=== PATIENT | female | born 1960 | race Caucasian/White ===

== ENCOUNTER 2022-03-11 12:18 | Emergency (ER) | payer OTHER, SELFPAY ==
--- NOTE | ~2022-03-11 | XR_ITS ---
EXAMINATION: XR knee RT 3V DATE: 03/11/2022 12:55 INDICATION: Right knee pain TECHNIQUE: Three views of the right knee were obtained. COMPARISON: None. FINDINGS: Alignment is normal. No fracture or osteochondral lesion. Joint spaces are normal with no e rosions. No joint effusion/synovitis. Soft tissues are unremarkable. IMPRESSION: 1. No acute osseous abnormality. Reviewed, dictated and finalized at location B. [facility]PERINTENDENT
[2022-03-11 12:26] VITALS: BP 154/56; PULSE 86; RESP 16; TEMP 37.1; O2SAT 96
[2022-03-11 12:35] VITALS: BP 154/56; PULSE 86; RESP 16; TEMP 37.1; O2SAT 96
--- NOTE | 2022-03-11 12:40 | ED.URI ---
HPI - URI/Sore Throat General Chief Complaint: Upper Respiratory Infection Stated Complaint: cough, rt knee injury Time Seen by Provider: 03/11/22 12:36 Source: patient and RN notes reviewed Mode of arrival: ambulatory Limitations: no limitations History of Present Illness HPI Narrative: 61-year-old female presents with multiple complaints. She reports a cough since last week that is worse at night causing her trouble sleeping. She denies any runny nose, stuffy nose, sore throat, aches, chills, sweats, shortness of breath. And a separate complaints she reports right knee pain. Reports she twisted her knee last Friday. She reports posterior pain that does not ease when she is resting. She reports trouble finding a comfortable position. She denies swelling, bruising, redness, warmth of the knee MD elicited complaint: cough and other (Right knee pain) Related Data Home Medications Medication Instructions Recorded Confirmed aspirin 81 mg tablet 81 mg PO DAILY 03/11/22 03/11/22 bupropion HCl 150 mg 24 hr tablet, 150 mg PO DAILY 03/11/22 03/11/22 extended release bupropion HCl 300 mg 24 hr tablet, 300 mg PO DAILY 03/11/22 03/11/22 extended release calcium carbonate 600 mg-vitamin 1 tablet PO DAILY 03/11/22 03/11/22 D3 10 mcg (400 unit) tablet citalopram 40 mg tablet 40 mg PO DAILY 03/11/22 03/11/22 esomeprazole magnesium 20 mg 20 mg PO DAILY 03/11/22 03/11/22 capsule,delayed release (Nexium) furosemide 40 mg tablet 40 mg PO DAILY 03/11/22 03/11/22 lovastatin 20 mg tablet 20 mg PO DAILY 03/11/22 03/11/22 spironolactone 25 mg tablet 25 mg PO DAILY 03/11/22 03/11/22 Allergies Allergy/AdvReac Type Severity Reaction Status Date / Time No Known Allergies Allergy Mild Verified 03/11/22 12:29 Review of Systems Review of Systems: CONSTITUTIONAL: Denies malaise, chills, sweats, or fever. EYES: Denies visual changes, redness, or discharge. ENT: Denies rhinorrhea, congestion, sinus pain, otalgia and sore throat. CARDIOVASCULAR: Denies chest pain, palpitations, or edema. RESPIRATORY: Reports cough. Denies dyspnea. GASTROINTESTINAL: Denies abdominal pain, nausea, vomiting, diarrhea SKIN: Denies rash or itching. MUSCULOSKELETAL: Denies myalgia. Reports right knee pain NEUROLOGIC: Denies headache. All systems reviewed & are unremarkable except as noted in HPI and below PMFSH Family History Family History (Updated 10/28/13 @ 07:13 by DOCTOR UNKNOWN) Father Hypertension Patient's father is Mother Patient's mother is Social History Social History Alcohol intake: never Comments At time of signature, agree with nursing past medical, surgical, social and family history. There is no relevant family history pertinent to the presenting complaint Exam Narrative: GENERAL: Well-appearing, well-nourished, and in no acute distress. HEAD: Normocephalic EYES: PERRLA, conjunctivae clear ENT: Nares clear. Mucous membranes moist. TM pearly walter with sharp light reflex bilaterally; no tragal tenderness. Oropharynx not erythematous without lesions. Tonsils not enlarged and without exudate, no drooling, no hoarseness, no trismus, uvula midline. NECK: Supple. No lymphadenopathy CHEST: Clear to auscultation, breath sounds equal. No wheezing, rhonchi, rales, or stridor. No respiratory distress, speaks in full sentences. HEART: Regular rate and rhythm. No murmur heard. SKIN: Warm, dry, no rash. MUSC: Medial right knee tenderness without bruising, swelling. Grossly normal range of motion, sensation, strength NEURO: Alert and oriented x3. PSYCH: Normal mood and affect Course Course Emergency Course: Patient is aware of diagnosis, understands and agrees to treatment plan. Anticipatory guidance given. Patient agrees to follow-up as directed and is aware of reasons to seek care at the emergency department. Portions of this record may have been created with voice recognition software
== END 2022-03-11 13:06 | disposition home or self-care (01) ==
PROVIDERS: Emergency Provider Nurse Practitioner; PCP Internal Medicine
DX: R05.9 Cough, unspecified (principal); S83.91XA Sprain of unspecified site of right knee, initial encounter; X50.9XXA Other and unspecified overexertion or strenuous movements or postures, initial encounter; Z79.82 Long term (current) use of aspirin; J44.9 Chronic obstructive pulmonary disease, unspecified; F41.9 Anxiety disorder, unspecified; F32.A Depression, unspecified
CPT/HCPCS: 73562; 99204; G0463

== ENCOUNTER 2022-11-11 09:42 | Emergency (ER) | payer OTHER, SELFPAY ==
[2022-11-11 09:57] VITALS: BP 143/86; PULSE 77; RESP 16; TEMP 36.6; O2SAT 99
--- NOTE | 2022-11-11 10:01 | ED.EAR ---
HPI - Ear Problem General Chief complaint: Ear Stated complaint: Earache Time Seen by Provider: 11/11/22 09:53 Source: patient and RN notes reviewed Mode of arrival: ambulatory Limitations: no limitations History of Present Illness HPI Narrative: Patient presents today complaining of right ear pain x2 days with muffled hearing. Pain radiates down the right side of her neck. She currently rates her pain 10/10 and has been taking ibuprofen with mild relief. Denies any additional symptoms. Related Data Home Medications Medication Instructions Recorded Confirmed aspirin 81 mg tablet 81 mg PO DAILY 03/11/22 11/11/22 bupropion HCl 150 mg 24 hr tablet, 150 mg PO DAILY 03/11/22 11/11/22 extended release bupropion HCl 300 mg 24 hr tablet, 300 mg PO DAILY 03/11/22 11/11/22 extended release calcium carbonate 600 mg-vitamin 1 tablet PO DAILY 03/11/22 11/11/22 D3 10 mcg (400 unit) tablet citalopram 40 mg tablet 40 mg PO DAILY 03/11/22 11/11/22 esomeprazole magnesium 20 mg 20 mg PO DAILY 03/11/22 11/11/22 capsule,delayed release (Nexium) furosemide 40 mg tablet 40 mg PO DAILY 03/11/22 11/11/22 lovastatin 20 mg tablet 20 mg PO DAILY 03/11/22 11/11/22 spironolactone 25 mg tablet 25 mg PO DAILY 03/11/22 11/11/22 gabapentin 100 mg capsule 100 mg PO TID 11/11/22 11/11/22 ibuprofen 600 mg tablet 600 mg PO TID 11/11/22 11/11/22 Allergies Allergy/AdvReac Type Severity Reaction Status Date / Time No Known Allergies Allergy Mild Verified 11/11/22 09:51 Review of Systems Review of Systems: CONSTITUTIONAL: Denies body aches, fever, chills, or sweats. EYES: Denies visual changes, redness, or discharge. ENT: Denies rhinorrhea, congestion, sore throat. + right ear pain CARDIOVASCULAR: Denies chest pain, palpitations, or edema. RESPIRATORY: Denies cough or dyspnea. GASTROINTESTINAL: Denies abdominal pain, nausea, vomiting, or diarrhea. GENITOURINARY: Denies dysuria or hematuria. SKIN: Denies rash, itching, or wounds. MUSCULOSKELETAL: Denies back pain, joint pain, or myalgia. NEUROLOGIC: Denies headache, numbness, tingling, or weakness. PSYCH: Denies depression or anxiety. [facility] Past Medical History Medical History (Updated 11/11/22 @ 10:11 by HEATH Rowley, ) GERD (gastroesophageal reflux disease) High cholesterol Family History Family History Father Hypertension Patient's father is Mother Patient's mother is Social History Social History Alcohol intake: never Comments At time of signature, I have reviewed and agree with nursing past medical, surgical, social and family history unless otherwise noted. Please see nursing chart for further information. There is no relevant family history pertinent to the presenting complaint Exam Narrative: GENERAL: Well-appearing, well-nourished, and in no acute distress. HEAD: Normocephalic, atraumatic. EYES: EOMI. No redness or drainage. Conjunctivae normal. ENT: Mucous membranes pink and moist. Nares clear. No rhinorrhea. Left TM normal. Right TM erythematous and bulging. NECK: Normal AROM. CHEST: No respiratory distress. EXTREMITIES: Normal range of motion. No edema. SKIN: Warm, dry, no rash. Capillary refill normal. Normal skin turgor. NEURO: No focal deficits. Alert and oriented x3. Gait steady. PSYCH: Normal affect. No signs of depression or anxiety. Course Course Level of Care: Express Care Visit Vital Signs Vital signs: Vital Signs Temperature 97.9 F 11/11/22 09:57 Pulse Rate 77 11/11/22 09:57 Respiratory Rate 16 11/11/22 09:57 Blood Pressure 143/86 H 11/11/22 09:57 Pulse Oximetry 99 11/11/22 09:57 Oxygen Delivery Room Air 11/11/22 09:57 Temperature 97.9 F 11/11/22 09:57 Pulse Rate 77 11/11/22 09:57 Respiratory Rate 16 11/11/22 09:57
== END 2022-11-11 10:14 | disposition home or self-care (01) ==
PROVIDERS: Emergency Provider Nurse Practitioner; PCP Internal Medicine
DX: H66.001 Acute suppurative otitis media without spontaneous rupture of ear drum, right ear (principal); K21.9 Gastro-esophageal reflux disease without esophagitis; E78.00 Pure hypercholesterolemia, unspecified; Z79.82 Long term (current) use of aspirin
CPT/HCPCS: 99213; G0463

== ENCOUNTER 2023-03-17 15:09 | Emergency (ER) | payer OTHER, SELFPAY ==
[2023-03-17 15:14] VITALS: BP 125/68; PULSE 86; RESP 16; TEMP 36.5; O2SAT 98
--- NOTE | 2023-03-17 15:56 | ED.URI ---
HPI - URI/Sore Throat General Chief Complaint: Upper Respiratory Infection Stated Complaint: Sore Throat;Cough;Ear pain Time Seen by Provider: 03/17/23 15:40 Source: patient, RN notes reviewed and old records reviewed Mode of arrival: ambulatory Limitations: no limitations History of Present Illness HPI Narrative: 62 year old female presents to [facility] care accompanied by daughter with complaints of cough, head congestion, sore throat, and some ear pain for the past 3 days. Patient reports no known fevers, chills or body aches.Patient reports that cough is productive at times, states has been taking Mucinex for her symptoms. MD elicited complaint: cough, sore throat, rhinorrhea, nasal congestion and other (ear pain) Pertinent past history: COPD Onset (ago): day(s) (3) Severity: mild Able to tolerate fluids by mouth: Yes Treatments prior to arrival: other (Mucinex) Related Data Home Medications Medication Instructions Recorded Confirmed bupropion HCl 150 mg 24 hr tablet, 150 mg PO DAILY 03/11/22 03/17/23 extended release bupropion HCl 300 mg 24 hr tablet, 300 mg PO DAILY 03/11/22 03/17/23 extended release calcium carbonate 600 mg-vitamin 1 tablet PO DAILY 03/11/22 03/17/23 D3 10 mcg (400 unit) tablet citalopram 40 mg tablet 40 mg PO DAILY 03/11/22 03/17/23 esomeprazole magnesium 20 mg 20 mg PO DAILY 03/11/22 03/17/23 capsule,delayed release (Nexium) furosemide 40 mg tablet 40 mg PO DAILY 03/11/22 03/17/23 lovastatin 20 mg tablet 20 mg PO DAILY 03/11/22 03/17/23 spironolactone 25 mg tablet 25 mg PO DAILY 03/11/22 03/17/23 gabapentin 100 mg capsule 100 mg PO TID 11/11/22 03/17/23 ibuprofen 600 mg tablet 600 mg PO TID 11/11/22 03/17/23 Allergies Allergy/AdvReac Type Severity Reaction Status Date / Time No Known Allergies Allergy Mild Verified 03/17/23 15:27 Review of Systems Review of Systems: CONSTITUTIONAL: Denies malaise, chills, sweats, or fever. EYES: Denies visual changes, redness, or discharge. ENT: Reports rhinorrhea, congestion, sinus pain, otalgia and sore throat. CARDIOVASCULAR: Denies chest pain, palpitations, or edema. RESPIRATORY: Reports cough.? Denies dyspnea. GASTROINTESTINAL: Denies abdominal pain, nausea, vomiting, diarrhea SKIN: Denies rash or itching. MUSCULOSKELETAL: Denies myalgia. NEUROLOGIC: Denies headache. All systems reviewed & are unremarkable except as noted in HPI and below PMFSH Past Medical History Medical History COPD (chronic obstructive pulmonary disease) GERD (gastroesophageal reflux disease) High cholesterol Surgical History Surgical History Hx of cholecystectomy Family History Family History Father Hypertension Patient's father is Mother Patient's mother is Social History Social History Smoking status: Former smoker Alcohol intake: never Substance use type: does not use Gender identity (if verbalized by the patient): Female Comments At time of signature, agree with nursing past medical, surgical, social and family history. There is no relevant family history pertinent to the presenting complaint Exam Narrative: GENERAL: Well-appearing, well-nourished, orbidly obese,and in no acute distress. HEAD: Normocephalic EYES: PERRLA, conjunctivae clear ENT: Nares clear, turbinates edematous and erythematous, clear discharge. Mucous membranes moist. TM pearly walter with dull light reflex bilaterally; no tragal tenderness. Oropharynx erythematous without lesions. Tonsils not enlarged and without exudate, no drooling, no hoarseness, no trismus, uvula midline.post nasal discharge NECK: Supple. No lymphadenopathy CHEST: Clear to auscultation, breath sounds equal. No wheezin
== END 2023-03-17 16:16 | disposition home or self-care (01) ==
PROVIDERS: Emergency Provider Registered Nurse
DX: J06.9 Acute upper respiratory infection, unspecified (principal); R05.9 Cough, unspecified; Z20.822 Contact with and (suspected) exposure to COVID-19; Z87.891 Personal history of nicotine dependence; J44.9 Chronic obstructive pulmonary disease, unspecified; K21.9 Gastro-esophageal reflux disease without esophagitis; E78.00 Pure hypercholesterolemia, unspecified
CPT/HCPCS: 87081; 87426; 87804; 87880; 99213; G0463

== ENCOUNTER 2023-05-27 17:17 | Emergency (ER) | payer OTHER, SELFPAY ==
[2023-05-27 17:23] VITALS: BP 112/77; PULSE 81; RESP 20; TEMP 36.2; O2SAT 97
--- NOTE | 2023-05-27 17:48 | ED.URI ---
HPI - URI/Sore Throat General Chief Complaint: Upper Respiratory Infection Stated Complaint: Congestion/Cough Source: patient and RN notes reviewed Mode of arrival: ambulatory Limitations: no limitations History of Present Illness HPI Narrative: 62 y/o female with hx COPD presented for c/o hoarse voice, nasal congestion and cough for about 3 days. Took a dose of Nyquil without any relief. Grandson with similar symptoms. Denies sob, wheezing, n/v/d/f/c. MD elicited complaint: cough Related Data Home Medications Medication Instructions Recorded Confirmed bupropion HCl 150 mg 24 hr tablet, 150 mg PO DAILY 03/11/22 05/27/23 extended release bupropion HCl 300 mg 24 hr tablet, 300 mg PO DAILY 03/11/22 05/27/23 extended release calcium carbonate 600 mg-vitamin 1 tablet PO DAILY 03/11/22 05/27/23 D3 10 mcg (400 unit) tablet citalopram 40 mg tablet 40 mg PO DAILY 03/11/22 05/27/23 esomeprazole magnesium 20 mg 20 mg PO DAILY 03/11/22 05/27/23 capsule,delayed release (Nexium) furosemide 40 mg tablet 40 mg PO DAILY 03/11/22 05/27/23 lovastatin 20 mg tablet 20 mg PO DAILY 03/11/22 05/27/23 spironolactone 25 mg tablet 25 mg PO DAILY 03/11/22 05/27/23 gabapentin 100 mg capsule 100 mg PO TID 11/11/22 05/27/23 ibuprofen 600 mg tablet 600 mg PO TID 11/11/22 05/27/23 Allergies Allergy/AdvReac Type Severity Reaction Status Date / Time No Known Allergies Allergy Mild Verified 05/27/23 17:34 Review of Systems Review of Systems: CONSTITUTIONAL: Denies malaise, chills, sweats, fever EYES: Denies visual changes, redness, or discharge ENT: Reports rhinorrhea, congestion, denies sinus pain, otalgia, sore throat CARDIOVASCULAR: Denies chest pain, palpitations, edema RESPIRATORY: Reports cough, post nasal drainage. Denies dyspnea GASTROINTESTINAL: Denies abdominal pain, nausea, vomiting, diarrhea SKIN: Denies rash or itching MUSCULOSKELETAL: Denies myalgia NEUROLOGIC: Denies headache PMFSH Past Medical History Medical History COPD (chronic obstructive pulmonary disease) GERD (gastroesophageal reflux disease) High cholesterol Surgical History Surgical History Hx of cholecystectomy Family History Family History Father Hypertension Patient's father is Mother Patient's mother is Social History Social History Smoking status: Former smoker Alcohol intake: never Substance use type: does not use Gender identity (if verbalized by the patient): Female Exam Narrative: GENERAL: well-appearing EYES: PERRLA, conjunctivae clear ENT: Mucous membranes moist. TMs pearly walter with dull light reflex bilaterally; no tragal tenderness. Hoarse voice. Oropharynx not erythematous without lesions or exudate, no drooling, no trismus, uvula midline. No tripod positioning, muffled voice, soft palate or pharyngeal wall bulging NECK: Supple. No lymphadenopathy CHEST: Clear to auscultation, breath sounds equal. No wheezing, rhonchi, rales, or stridor. No respiratory distress, speaks in full sentences. HEART: Regular rate and rhythm. No murmur heard. SKIN: Warm, dry, no rash. NEURO: Alert and oriented x3. PSYCH: Normal mood and affect Course Course Emergency Course: Patient is aware of diagnosis, understands and agrees to treatment plan. Anticipatory guidance given. Patient agrees to follow-up as directed and is aware of reasons to seek care at the emergency department. Portions of this record may have been created with voice recognition software Level of Care: Express Care Visit Vital Signs Vital signs: Vital Signs Temperature 97.2 F L 05/27/23 17:23 Pulse Rate 81 05/27/23 17:23 Respiratory Rate 20 05/27/23 17:23 Blood Pressure 112/77 05/27/23
== END 2023-05-27 18:13 | disposition home or self-care (01) ==
PROVIDERS: Emergency Provider Nurse Practitioner Family
DX: J06.9 Acute upper respiratory infection, unspecified (principal); Z20.822 Contact with and (suspected) exposure to COVID-19; Z87.891 Personal history of nicotine dependence; J44.9 Chronic obstructive pulmonary disease, unspecified; K21.9 Gastro-esophageal reflux disease without esophagitis; E78.00 Pure hypercholesterolemia, unspecified
CPT/HCPCS: 87081; 87426; 87804; 87880; 99213; G0463